=== PATIENT | female | born 1965 | race Caucasian/White ===

== ENCOUNTER 2017-01-10 14:03 | Emergency (ER) | payer BC ==
[~2017-01-10] VITALS: Ht 170.2 cm; Wt 104.6 kg
[2017-01-10 14:08] VITALS: TEMP 37.2; Ht 170.2 cm; Wt 104.6 kg
[2017-01-10] MEDS ORDERED: ACETAMINOPHEN 500 MG TAB PO STA (14:52)
[2017-01-10] MEDS ORDERED: LEVO125T72 PO (14:55)
[2017-01-10] MEDS ORDERED: ALBUAER INH (14:56)
[2017-01-10] MEDS ORDERED: ADVIN25/60 INH (14:56)
[2017-01-10] MEDS ORDERED: TRAM-10 PO (15:18)
[2017-01-10] MEDS ORDERED: CEPH500C PO (15:18)
--- NOTE | 2017-01-10 15:19 | DIAGNOSTIC IMAGING REPORT ---
C-SPINE ROUTINE 4 OR 5 VIEWS CLINICAL HISTORY: 51 years-old Female presenting with Neck pain/MARTINEZ, fall at work, right arm pain. TECHNIQUE: Lateral, bilateral oblique, frontal, and open-mouth odontoid views of the cervical spine were obtained. COMPARISON: None. FINDINGS: Normal cervical lordosis. Vertebral bodies maintain normal height and alignment. Intervertebral disc spaces maintained. The C7 vertebral body is almost entirely visualized on lateral view. Normal atlantodental articulation. No advanced degenerative changes evident. No significant osseous neural foraminal narrowing. No prevertebral soft tissue swelling. Lateral masses of C1 articulate normally with C2. IMPRESSION: No radiographic evidence of acute osseous injury of the cervical spine. Electronically signed by: Frank Mendoza M.D. 01/10/2017 3:18 PM Dictated Date/Time: 01/10/2017 3:16 PM
--- NOTE | 2017-01-10 15:40 | EMERGENCY ROOM VISIT NOTE ---
History First contact with patient: 14:32 Chief Complaint: ARM PAIN Stated Complaint: RT ARM PAIN, BACK PAIN History of Present Illness The patient is a 51 year old female who presents to the Emergency Room with complaints of injuries after falling at work on . The patient reports that she got up from her desk and tripped on an extension cord, causing her to fall onto her right side. She complains of pain of the right forearm, elbow and shoulder. She also complains of mild neck discomfort and a headache. She denies hitting her head. She currently denies any back pain, chest pain, shortness of breath or abdominal pain. She denies any paresthesias or numbness of the right upper extremity. The patient is [id number]. Patient reports significant bruising of the elbow region. She is concerned that she has an injury to the olecranon bursa. The patient denies significant NSAIDs or aspirin use. The patient was seen at [place] emergency department yesterday with normal elbow and forearm x-rays. She is concerned because of the increasing swelling, bruising and now redness of the right elbow region. She denies any skin wounds on her initial fall. She has been applying ice as tolerated, and taking Aleve. The patient reports that she is sensitive to most pain medications. She rates her discomfort a 9 out of 10. Review of Systems 10 system review was performed and was negative except for pertinent positives and negatives as indicated in history of present illness Past Medical/Surgical History Medical Problems: (1) Asthma Surgical Problems: (1) History of cholecystectomy (2) History of ovarian cystectomy Family History FH: cancer FH: diabetes mellitus FH: hypertension FH: lung disease Social History Smoking Status: Never Smoker Alcohol Use: none Marital Status: Occupation Status: employed Current/Historical Medications Scheduled Cephalexin Monohydrate (Keflex), 500 MG PO QID Levothyroxine Sodium (Synthroid), 125 MCG PO DAILY Scheduled PRN Albuterol Sulfate (Proventil Hfa), 1 DOSE INH DIRECTED PRN for Shortness of Breath Fluticasone Prop/Salmeterol (Advair Diskus 250/50 60 Dose), 1 PUFF INH BID PRN for Shortness of Breath Tramadol (Ultram), 1 TAB PO Q4H PRN for Pain Physical Exam Vital Signs Date Time Temp Pulse Resp B/P (MAP) Pulse Ox O2 Delivery O2 Flow Rate FiO2 11/11/17 14:08 37.2 100 18 141/87 97 Room Air Physical Exam CONSTITUTIONAL: Healthy and well nourished. Alert and oriented X 3 with positive affect. Patient appears in mild discomfort. HEENT: Normocephalic, atraumatic. Pupils equal, round and reactive. No subconjunctival hemorrhage, epistaxis, raccoon's eyes or Min sign. NECK: Examination shows mild tenderness to palpation of the upper cervical spine. She has mild discomfort with range of motion. RESPIRATORY: Clear to auscultation bilaterally with no wheezing, crackles, rhonchi or stridor. CARDIOVASCULAR: Regular rate and rhythm with no murmurs, rubs or gallops. MUSCULOSKELETAL: Examination shows notable edema of the proximal forearm and elbow region. She has notable ecchymosis of the entire region, and overlying erythema of the posterior proximal forearm and lower elbow region. She has no bogginess of the olecranon bursa. The patient is able to flex and extend, as well as pronate and supinate without any significant discomfort. She has mild tenderness to palpation through the distal triceps. No tenderness to palpation through the anterior shoulder or biceps musculature. Capillary refill of the right hand is less than 2 seconds. Equal hand offal baler bilaterally. INTEGUMENTARY: No rash or other significant dermatologic conditions noted. NEUROLOGIC: Right hand and fingers are sensory intact. Medical Decision & Procedures ER Provider Diagnostic Interpretation: My interpretation of cervical spine x-rays does not show any acute fractures, subluxation or lordotic reversal. Radiologist report is as follows: C-SPINE ROUTINE 4 OR 5 VIEWS CLINICAL HISTORY: 51 years-old Female presenting with Neck pain/MARTINEZ, fall at work, right arm pain. TECHNIQUE: Lateral, bilateral oblique, frontal, and open-mouth odontoid views of the cervical spine were obtained. COMPARISON: None. FINDINGS: Normal cervical lordosis. Vertebral bodies maintain normal height and alignment. Intervertebral disc spaces maintained. The C7 vertebral body is almost entirely visualized on lateral view. Normal atlantodental articulation. No advanced degenerative changes evident. No significant osseous neural foraminal narrowing. No prevertebral soft tissue swelling. Lateral masses of C1 articulate normally with C2. IMPRESSION: No radiographic evidence of acute osseous injury of the cervical spine. Medications Administered Medications (Trade) Dose Ordered Sig/Gage Route Start Time Stop Time Status Last Admin Dose Admin Acetaminophen (Tylenol Tab) 1,000 mg NOW STAT PO 01/10/17 14:52 01/10/17 14:53 DC 01/10/17 15:22 1,000 MG ED Course Patient history and physical exam were performed. Nurse's notes were reviewed. Vital signs were reviewed and were normal. Because the patient has already had x-rays performed of her right elbow and forearm, these will be deferred. Because she does have a headache and neck discomfort, I did suggest performing a cervical spine x-rays. Cervical spine x-rays were normal. The patient was administered Tylenol only at her request. The patient was advised that the appearance of her arm is consistent with an ecchymosis, possible underlying bleed. However, I cannot rule out the possibility of a developing cellulitis. I explained that the examination is not consistent with a septic bursitis at this time. The patient was provided a prescription for Keflex. An Ceaasr wrap was applied to the elbow and forearm. Regarding pain management, she reports that the Aleve is not helping with the pain. In addition to alternating ibuprofen and Tylenol for pain relief, she was also provided a prescription for Ultram. She reports that even Ultram makes her extremely drowsy, yet I wanted to make sure that she had something to help with the pain over the weekend if needed. The patient was encouraged to follow-up with her Worker's Compensation approved orthopedic surgeon for further reevaluation. She was instructed to seek further emergent reevaluation for any significantly worsening redness, swelling, pain or developing fever. The patient was happy with plan of care, voice understanding of all discharge instructions, and rated her pain a 6 out of 10 at the conclusion of my exam, refusing any further analgesics prior to discharge. Medical Decision [place] Drug Monitoring Program Search Results: patient reviewed within database, no issues identified Head Trauma GCS Score: 15 Medication Reconcilliation Current Medication List: was personally reviewed by me Blood Pressure Screening Patient's blood pressure: Normal blood pressure Impression Primary Impression: Cervical strain, acute Additional Impressions: Contusion of right elbow and forearm Work related injury Fall from slip, trip, or stumble Departure Information Dispostion Home / Self-Care Prescriptions Cephalexin Monohydrate (Keflex) 500 Mg Cap 500 MG PO QID for 7 Days, #28 CAP Prov: Brayan Guido PA 01/10/17 Tramadol (Ultram) 50 Mg Tab 1 TAB PO Q4H Y for Pain, #15 TAB For Initial Treatment Prov: Brayan Guido PA 01/10/17 Forms HOME CARE DOCUMENTATION FORM, IMPORTANT VISIT INFORMATION Patient Instructions My [facility] Additional Instructions Continue to intermittently apply ice to the elbow and forearm over the next 24 hours, then moist heat as needed. Protect the skin with a towel when applying ice or heat. Ibuprofen 800 mg and/or Tylenol 1000 mg every 8 hours. You may also alternate these medications for more effective pain relief: Ibuprofen --4 HRS--> Tylenol --4 HRS--> ibuprofen --4 HRS--> Tylenol .... Ultram if needed for worse pain. Complete Keflex antibiotics as prescribed in case the redness is secondary to a skin infection (cellulitis). FOR WORK: Limited use of right upper extremity until reevaluated by Worker's Compensation approved orthopedic surgeon. Problem Qualifiers Primary Impression: Cervical strain, acute Encounter type: initial encounter Qualified Codes: S16.1XXA - Strain of muscle, fascia and tendon at neck level, initial encounter Additional Impressions: Contusion of right elbow and forearm Encounter type: initial encounter Qualified Codes: S50.11XA - Contusion of right forearm, initial encounter Fall from slip, trip, or stumble Encounter type: initial encounter Qualified Codes: W01.0XXA - Fall on same level from slipping, tripping and stumbling without subsequent striking against object, initial encounter
[2017-01-10 15:46] VITALS: BP 131/81; PULSE 90; O2SAT 98
[2017-01-11] MEDS ORDERED: ACET-1256 PO (19:34)
[2017-01-11] MEDS ORDERED: ONDA4TAB65 PO (21:41)
[2017-01-11] MEDS ORDERED: SULF800T23 PO (21:41)
[2017-01-11] MEDS ORDERED: CEPH-570 PO (22:07)
== END 2017-01-10 15:48 | disposition home or self-care (01) ==
LOC: C.EDB 14:04 → C.EDD 15:48
DX: S16.1XXA Strain of muscle, fascia and tendon at neck level, initial encounter (principal); S50.11XA Contusion of right forearm, initial encounter; S50.01XA Contusion of right elbow, initial encounter; W01.0XXA Fall on same level from slipping, tripping and stumbling without subsequent striking against object, initial encounter; Y93.89 Activity, other specified; Y92.89 Other specified places as the place of occurrence of the external cause; Y99.0 Civilian activity done for income or pay; J45.909 Unspecified asthma, uncomplicated; Z90.49 Acquired absence of other specified parts of digestive tract; Z83.3 Family history of diabetes mellitus; Z82.49 Family history of ischemic heart disease and other diseases of the circulatory system

== ENCOUNTER 2017-01-11 19:05 | Emergency (ER) | payer OTHER, BC ==
[~2017-01-11] VITALS: Ht 170.2 cm; Wt 102.9 kg
[~2017-01-11 19:05] MED LIST: ADVIN25/60 INH; ALBUAER INH; CEPH500C PO; LEVO125T72 PO; TRAM-10 PO
[2017-01-11 19:07] VITALS: TEMP 37; Ht 170.2 cm; Wt 102.9 kg
[2017-01-11] MEDS ORDERED: CEFTRIAXONE SOD INJ 1 GM ADDVIAL IV STA (19:30)
[2017-01-11] MEDS ORDERED: ACET-1256 PO (19:34)
[2017-01-11 19:36] LABS: BASO % 0.2 %; BASO ABS # 0.04 K/uL (0-0.2); COMPLETE YES; HEMATOCRIT 38.2 % (37-47); IG% 0.3 %; LYMPH % 12.8 %; LYMPH ABS # 2.63 K/uL (1.2-3.4); MEAN CELL VOLUME 85.8 fL (80-100); MEAN CORPUSCULAR HGB CONC 33.8 g/dl (32-36); MEAN PLATELET VOLUME 10.6 fL (7.4-10.4); MONO % 5.7 %; PLATELET COUNT 221 K/uL (130-400); RED BLOOD COUNT 4.45 M/uL (4.2-5.4); WHITE BLOOD COUNT 20.47 K/uL (4.8-10.8)
[2017-01-11 19:49] LABS: BLOOD UREA NITROGEN 11 mg/dl (7-18); BUN/CREATININE RATIO 14.1 (10-20); CALCIUM 8.5 mg/dl (8.5-10.1); CARBON DIOXIDE 24 mmol/L (21-32); CHLORIDE 105 mmol/L (98-107); CREATININE 0.81 mg/dl (0.60-1.20); GLUCOSE 118 mg/dl (70-99); POTASSIUM 3.7 mmol/L (3.5-5.1); SODIUM 139 mmol/L (136-145)
[2017-01-11] MEDS ORDERED: SODIUM CHLORIDE 0.9% 500ML 500 ML IV STA ×2 (20:00→21:23)
--- NOTE | 2017-01-11 20:10 | DIAGNOSTIC IMAGING REPORT ---
CHEST ONE VIEW PORTABLE HISTORY: 51 years-old Female swelling rue acute swelling of the right upper extremity COMPARISON: None available TECHNIQUE: Portable upright AP view of the chest FINDINGS: Cardiomediastinal and hilar silhouettes are within normal limits. There is no pneumothorax, pleural effusion, focal airspace consolidation or overt pulmonary edema. Bones of the chest appear grossly intact. IMPRESSION: No acute cardiopulmonary process. The above report was generated using voice recognition software. It may contain grammatical, syntax or spelling errors. Electronically signed by: Osacr Jara M.D. 01/11/2017 8:09 PM Dictated Date/Time: 01/11/2017 8:08 PM
--- NOTE | 2017-01-11 20:31 | DIAGNOSTIC IMAGING REPORT ---
R VENOUS DOPPLER UPR EXT UNIL HISTORY: 51 years-old Female rue swelling acute swelling of the right upper extremity COMPARISON: None available TECHNIQUE: Multiple real-time sonographic images of the right upper extremity deep venous structures were obtained assessing grayscale appearance, color and spectral flow. FINDINGS: There is normal flow, phasicity, augmentation and compressibility of the right upper extremity deep venous system. Mild soft tissue swelling is noted. IMPRESSION: No sonographic evidence of deep venous thrombosis. The above report was generated using voice recognition software. It may contain grammatical, syntax or spelling errors. Electronically signed by: Oscar Jara M.D. 01/11/2017 8:30 PM Dictated Date/Time: 01/11/2017 8:28 PM
[2017-01-11] MEDS ORDERED: ONDANSETRON INJ 2 MG/ML 2 ML VIAL IV STA (21:22)
[2017-01-11] MEDS ORDERED: SULFAMETHOXAZOLE/TRIMETHOPRIM DS 800/160MG TAB PO STA (21:22)
[2017-01-11] MEDS ORDERED: ONDA4TAB65 PO (21:41)
[2017-01-11] MEDS ORDERED: SULF800T23 PO (21:41)
[2017-01-11] MEDS ORDERED: CEPH-570 PO (22:07)
[2017-01-11 22:19] VITALS: BP 126/70; PULSE 90; O2SAT 98
--- NOTE | 2017-01-11 22:32 | EMERGENCY ROOM VISIT NOTE ---
History Report prepared by Michelle: Darnell Oropeza Under the Supervision of: Dr. Joaquin Gamboa D.O. First contact with patient: 19:11 Chief Complaint: ARM PAIN Stated Complaint: PAIN AND SWELLING, HOT TO TOUCH R ARM History of Present Illness The patient is a 51 year old female who presents to the Emergency Room with complaints of worsening arm right arm pain that started 3 days ago after a fall at work. She says that she came here yesterday, and was started on Keflex as it was thought that it may be the start of cellulitis. The patient states that she took her first dose today. She states that there was an immediate lump and bruise on her right arm after the fall, and yesterday it started to get red, but today the redness has spread to a lot of her arm. The patient notes that she had a temperature of 99.6 today, but she has not had any fevers above 100.4. She adds that she has had a bit of intermittent chest pain starting a half hour ago, with some feeling of heart racing. The patient states that it would last a second at a time. She denies any loss of consciousness or worsened shortness of breath. Patient denies diabetes, hypertension, hyperlipidemia, CAD , history of sudden at a young age, and smoking. Patient denies swelling of calves, recent trips, history of immobilization or recent surgery, prior history of DVT, hemoptysis, history of malignancy, history of smoking, or control/estrogen use. Source of History: patient Onset: 3 days ago Position: arm (right) Quality: other (after fall at work - pain) Timing: worsening Associated Symptoms: + chest pain, No LOC, No fevers, No SOB Note: Associated symptoms: Redness around right arm. Lump on right arm. Feelings of heart racing. Review of Systems See HPI for pertinent positives & negatives. A total of 10 systems reviewed and were otherwise negative. Past Medical & Surgical Medical Problems: (1) Asthma Surgical Problems: (1) History of cholecystectomy (2) History of ovarian cystectomy Family History FH: cancer FH: diabetes mellitus FH: hypertension FH: lung disease Social History Smoking Status: Never Smoker Alcohol Use: none Marital Status: Occupation Status: employed Current/Historical Medications Scheduled Cephalexin (Keflex), 1 CAP PO QID Cephalexin Monohydrate (Keflex), 500 MG PO QID Levothyroxine Sodium (Synthroid), 125 MCG PO DAILY Sulfa/Trimethoprim (Bactrim Ds 800MG/160MG), 1 TAB PO BID Scheduled PRN Acetaminophen (Tylenol), 1,000 MG PO Q6 PRN for Headache or Pain Albuterol Sulfate (Proventil Hfa), 1 DOSE INH DIRECTED PRN for Shortness of Breath Fluticasone Prop/Salmeterol (Advair Diskus 250/50 60 Dose), 1 PUFF INH BID PRN for Shortness of Breath Ondansetron Hcl (Zofran), 1 TAB PO Q6H PRN for Nausea Tramadol (Ultram), 1 TAB PO Q4H PRN for Pain Allergies Coded Allergies: Latex2 -Systemic Allergic Response (Verified Allergy, Severe, SWELLING AT TOUCH SITE/SOB, 01/10/17) POLLEN (Verified Allergy, Intermediate, ITCHY EYES, SNEEZING, CONGESTION, 01/10/17) Sulfa Antibiotics (Verified Allergy, Intermediate, NAUSEA/VOMITING, ) Physical Exam Vital Signs Date Time Temp Pulse Resp B/P (MAP) Pulse Ox O2 Delivery O2 Flow Rate FiO2 01/11/17 22:19 90 20 126/70 98 Room Air 01/11/17 20:40 102 18 127/68 96 Room Air 01/11/17 19:07 37.0 117 18 140/85 94 Room Air Physical Exam GENERAL: Sitting up in bed, alert, well appearing, well nourished, no distress, non-toxic EYE EXAM: normal conjunctiva. OROPHARYNX: no exudate, no erythema, lips, buccal mucosa, and tongue normal and mucous membranes are moist NECK: supple, no nuchal rigidity, no adenopathy, non-tender LUNGS: Clear to auscultation. Normal chest wall mechanics HEART: no murmurs, S1 normal and S2 normal CHEST: No reproducible anterior chest wall tenderness. ABDOMEN: abdomen soft, non-tender, normo-active bowel sounds, no masses, no rebound or guarding. BACK: Back is symmetrical on inspection and there is no deformity, no midline tenderness, no CVA tenderness. SKIN: no rashes and no bruising UPPER EXTREMITIES: Swelling of right distal humerus or dorsal aspect tracking to right mid-forearm with surrounding erythema, no induration, no tenderness with range of motion. LOWER EXTREMITIES: No pitting edema. NEURO EXAM: Normal sensorium, cranial nerves II-XII grossly intact, normal speech, no gross weakness of arms, no gross weakness of legs. Medical Decision & Procedures ER Provider Diagnostic Interpretation: Radiology results as stated below per my review and the radiologist's interpretation: R VENOUS DOPPLER UPR EXT UNIL HISTORY: 51 years-old Female rue swelling acute swelling of the right upper extremity COMPARISON: None available TECHNIQUE: Multiple real-time sonographic images of the right upper extremity deep venous structures were obtained assessing grayscale appearance, color and spectral flow. FINDINGS: There is normal flow, phasicity, augmentation and compressibility of the right upper extremity deep venous system. Mild soft tissue swelling is noted. IMPRESSION: No sonographic evidence of deep venous thrombosis. The above report was generated using voice recognition software. It may contain grammatical, syntax or spelling errors. Electronically signed by: Oscar Jara M.D. 01/11/2017 8:30 PM Dictated Date/Time: 01/11/2017 8:28 PM CHEST ONE VIEW PORTABLE HISTORY: 51 years-old Female swelling rue acute swelling of the right upper extremity COMPARISON: None available TECHNIQUE: Portable upright AP view of the chest FINDINGS: Cardiomediastinal and hilar silhouettes are within normal limits. There is no pneumothorax, pleural effusion, focal airspace consolidation or overt pulmonary edema. Bones of the chest appear grossly intact. IMPRESSION: No acute cardiopulmonary process. The above report was generated using voice recognition software. It may contain grammatical, syntax or spelling errors. Electronically signed by: Oscar Jara M.D. 01/11/2017 8:09 PM Dictated Date/Time: 01/11/2017 8:08 PM Laboratory Results 01/11/17 19:28 Red Blood Count 4.45, Mean Corpuscular Volume 85.8, Mean Corpuscular Hemoglobin 29.0, Mean Corpuscular Hemoglobin Concent 33.8, Mean Platelet Volume 10.6, Neutrophils (%) (Auto) 80.0, Lymphocytes (%) (Auto) 12.8, Monocytes (%) (Auto) 5.7, Eosinophils (%) (Auto) 1.0, Basophils (%) (Auto) 0.2, Neutrophils # (Auto) 16.36, Lymphocytes # (Auto) 2.63, Monocytes # (Auto) 1.17, Eosinophils # (Auto) 0.20, Basophils # (Auto) 0.04 01/11/17 19:28 Test 01/11/17 19:28 01/11/17 21:23 White Blood Count 20.47 K/uL (4.8-10.8) Red Blood Count 4.45 M/uL (4.2-5.4) Hemoglobin 12.9 g/dL (12.0-16.0) Hematocrit 38.2 % (37-47) Mean Corpuscular Volume 85.8 fL (80-100) Mean Corpuscular Hemoglobin 29.0 pg (25-34) Mean Corpuscular Hemoglobin Concent 33.8 g/dl (32-36) Platelet Count 221 K/uL (130-400) Mean Platelet Volume 10.6 fL (7.4-10.4) Neutrophils (%) (Auto) 80.0 % Lymphocytes (%) (Auto) 12.8 % Monocytes (%) (Auto) 5.7 % Eosinophils (%) (Auto) 1.0 % Basophils (%) (Auto) 0.2 % Neutrophils # (Auto) 16.36 K/uL (1.4-6.5) Lymphocytes # (Auto) 2.63 K/uL (1.2-3.4) Monocytes # (Auto) 1.17 K/uL (0.11-0.59) Eosinophils # (Auto) 0.20 K/uL (0-0.5) Basophils # (Auto) 0.04 K/uL (0-0.2) RDW Standard Deviation 43.0 fL (36.4-46.3) RDW Coefficient of Variation 13.7 % (11.5-14.5) Immature Granulocyte % (Auto) 0.3 % Immature Granulocyte # (Auto) 0.07 K/uL (0.00-0.02) Anion Gap 10.0 mmol/L (3-11) Est Creatinine Clear Calc Drug Dose 103.6 ml/min Estimated GFR () 98.8 Estimated GFR (Non- 85.3 BUN/Creatinine Ratio 14.1 (10-20) Calcium Level 8.5 mg/dl (8.5-10.1) Troponin I < 0.015 ng/ml (0-0.045) Laboratory results per my review. Medications Administered Medications (Trade) Dose Ordered Sig/Gage Route Start Time Stop Time Status Last Admin Dose Admin Ceftriaxone Sodium (Rocephin Inj) 1 gm NOW STAT IV 01/11/17 19:30 01/11/17 19:32 DC 01/11/17 19:50 1 GM Sodium Chloride 500 ml @ 999 mls/hr Q31M STAT IV 01/11/17 20:00 01/11/17 20:30 DC 01/11/17 20:40 999 MLS/HR Trimethoprim/ Sulfamethoxazole (Septra Ds 800/ 160MG Tab) 1 tab NOW STAT PO 01/11/17 21:22 01/11/17 21:23 DC 01/11/17 21:41 1 TAB Ondansetron HCl (Zofran Inj) 4 mg NOW STAT IV 01/11/17 21:22 01/11/17 21:23 DC 01/11/17 21:41 4 MG Sodium Chloride 500 ml @ 999 mls/hr Q31M STAT IV 01/11/17 21:23 01/11/17 21:53 DC 01/11/17 21:41 999 MLS/HR ECG Indication: chest pain Rate (beats per minute): 102 Rhythm: sinus tachycardia Findings: other (normal axis, incomplate RBBB, poor baseline inferior leads) ED Course ED COURSE: Vital signs were reviewed and showed tachycardic vitals. The patients medical record was reviewed The above diagnostic studies were performed and reviewed. ED treatments and interventions as stated above. 1911: The patient was evaluated in room A9B. A complete history and physical examination was performed. 1929: Ordered Rocephin Inj 1 gm IV. 1933: I reevaluated and updated the patient. 1935: Previous medical records were reviewed: patient's previous x-rays at [facility] were negative. 1999: Ordered NSS 500 ml @ 999 mls/hr IV. 2099: I reevaluated the patient and she is doing well. 2121: Ordered Zofran Inj 4 mg IV, Septra Ds 800/160MG Tab 1 tab PO. 2219: Upon reevaluation, the patient is resting comfortably. She says that her allergy to Bactrim is nausea, and wants to take that instead of Clindamycin. I discussed my findings with the patient and she understands and agrees with the treatment plan. Based on the patients age, coexisting illnesses, exam and lab findings the decision to treat as an outpatient was made. The patient remained stable while under my care. The patient appeared well at the time of discharge. Medical Decision Differential diagnosis includes etiologies such as cellulitis, abscess, MRSA infection, DVT, necrotizing fasciitis, dermatitis, drug eruption, as well as others were entertained. 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 I received a call by her physician was concerned that she may have blood clots in her right upper extremity as she has swelling and redness. She was seen here the other day and treated for cellulitis. All symptoms started when she fell midweek. X-rays performed at [facility] of the right upper extremity which were negative at that time. Following that she had right arm pain. Erythema started in the past 48 hours. She was prescribed Keflex yesterday but did not take any medication until she arrived in the ER tonight. Upon evaluation her right forearm is swollen and erythematous. She was slightly tachycardic with a heart rate in the 110. She was afebrile. CBC and BMP were obtained. Ultrasound/duplex was negative of RUE. CBC shows a leukocytosis of 20,000. She was given a liter normal saline. Heart rate trended down into the 80s to 90s. She was given IV Rocephin. She was given oral Bactrim. Prior to receiving Bactrim; discussed her allergy. She notes she gets nauseous with this and would prefer Bactrim over clindamycin. Updated the patient bedside. Wound was outlined. Offered observation overnight with IV antibiotics versus discharging her following up with PCP. Patient is extremely reliable as she is a nurse. She prefers to go home at this time. She was given a prescription for Bactrim and Zofran. She is uncertain if she can locate her Keflex and consequently she was given an additional prescription for Keflex. I stressed importance of following up with PCP in 24 hours. This will likely get worse over the course of 24 hours prior to getting better. She understands all this. She was given strict instructions and reasons to return to the ER. This was discussed at length. She understands that there is a good chance that she may fail outpatient treatment. Chest x-ray along with EKG and troponins 2 were negative. Patient is a low risk for chest pain. She complained of 1-2 second incidences of pain that she questions that this is secondary to her anxiety. Heart score is a low risk. Patient was updated regards to this. Do not believe this to be cardiac. All of the 's questions were answered as well. Discussed with Pt concerning signs and symptoms to watch out for. Pt was instructed to follow up with their PCP and discussed with the patient their option to return to the ED at anytime for persistent or worsening symptoms. The appropriate anticipatory guidance and out- patient management, including indications for return to the emergency department , were explained at length to the patient and understood. Medication Reconcilliation Current Medication List: was personally reviewed by me Blood Pressure Screening Patient's blood pressure: Normal blood pressure Impression Primary Impression: Cellulitis of right arm Additional Impression: Leukocytosis Scribe Attestation The scribe's documentation has been prepared under my direction and personally reviewed by me in its entirety. I confirm that the note above accurately reflects all work, treatment, procedures, and medical decision making performed by me. Departure Information Dispostion Home / Self-Care Prescriptions Cephalexin (KEFLEX) 250 Mg Cap 1 CAP PO QID for 10 Days, #40 CAP Prov: Joaquin Gamboa, DO 01/11/17 Ondansetron Hcl (ZOFRAN) 4 Mg Tab 1 TAB PO Q6H Y for Nausea, #20 TAB 1 Refill Prov: Joaquin Gamboa, DO 01/11/17 Sulfa/Trimethoprim (Bactrim Ds 800MG/160MG) Tab 1 TAB PO BID, #20 TAB Prov: Joaquin Gamboa, DO 01/11/17 Referrals No Doctor, Assigned (PCP) Patient Instructions Cellulitis - [facility] Additional Instructions Please follow up with your primary care doctor with in the next 24 hours. Any worsening of your symptoms, please return to the ED immediately. This includes any fevers greater than 100.4, worsening pain, chest pain, shortness breath, persistent nausea, vomiting, unable to eat or drink, or any other concerning signs or symptoms from your standpoint. Please also return for any redness streaking up into your axilla/arm, shaking chills, heart racing, or unable to take antibiotics. Problem Qualifiers Additional Impression: Leukocytosis Leukocytosis type: unspecified Qualified Codes: D72.829 - Elevated white blood cell count, unspecified
== END 2017-01-11 22:32 | disposition home or self-care (01) ==
LOC: C.EDB 19:06 → C.EDA 22:32
DX: L03.113 Cellulitis of right upper limb (principal); D72.829 Elevated white blood cell count, unspecified; W19.XXXA Unspecified fall, initial encounter; J45.909 Unspecified asthma, uncomplicated; Z83.3 Family history of diabetes mellitus; Z82.49 Family history of ischemic heart disease and other diseases of the circulatory system